=== PATIENT | male | born 1965 | race Caucasian/White ===

== ENCOUNTER 2019-11-23 14:36 | Inpatient (IN) | payer MEDICAID ==
[~2019-11-23] VITALS: Ht 185.4 cm; Wt 140.6 kg
--- NOTE | 2019-11-23 14:45 | NUR ---
BIB [facility] [address] [facility] TO ER- MULTIPLE BLE WOUNDS AND FAILURE TO THRIVE. TO ER BED 9, HOOKED TO MONITOR, CHANGED TO HOSP GOWN, PATIENT NOTED WITH COLOSTOMY BAG, SUPRAPUBIC CATHETER AND BETH CATHETER. WARM BLANKET PROVIDED, PATIENT AAO x 4, BREATHING EVEN AND UNLABORED. DR LOPEZ AT BEDSIDE FOR EVAL.
--- NOTE | 2019-11-23 15:07 | NUR ---
URINE SAMPLE COLLECTED FROM SUPRAPUBIC CATHETER. SENT SAMPLE TO LAB
[2019-11-23 15:12] LABS: BASOPHILS % (AUTO) 0.6 % (0.0-2.0); EOSINOPHILS % (AUTO) 3.1 % (0.0-6.0); HEMATOCRIT 37 % (39-51); HEMOGLOBIN 11.6 g/dL (13.5-17.5); LYMPHOCYTES # (AUTO) 1.6 /CMM (0.8-4.8); LYMPHOCYTES % (AUTO) 21.2 % (20.0-44.0); MEAN CORPUSCULAR HGB CONC 31 g/dl (31.0-36.0); MEAN CORPUSCULAR VOLUME 72 fL (80-96); MONOCYTES # (AUTO) 0.4 /CMM (0.1-1.30); MONOCYTES % (AUTO) 5.6 % (2.0-12.0); NEUTROPHILS # (AUTO) 5.2 /CMM (1.8-8.9); NEUTROPHILS % (AUTO) 69.5 % (43.0-81.0); PLATELET COUNT (AUTO) 251 /CMM (150-450); RED BLOOD CELL COUNT(AUTO) 5.16 MIL/uL (4.5-6.0); WHITE BLOOD COUNT (AUTO) 7.5 K/uL (4.3-11.0)
[2019-11-23 15:27] LABS: APPEARANCE,URINE Clear (CLEAR); BILIRUBIN,URINE Negative (NEGATIVE); BLOOD, URINE Trace-intact Ery/uL (NEGATIVE); COLOR,URINE Yellow (YELLOW); KETONES,URINE Negative (NEGATIVE); LEUKOCYTE ESTERASE ,URINE Small (NEGATIVE); NITRITE, URINE Positive (NEGATIVE); PROTEIN,URINE Trace mg/dl (NEGATIVE); UGLUCOSE Negative (NEGATIVE); UROBILINOGEN,URINE 0.2 EU/dL (0.2)
--- NOTE | 2019-11-23 15:33 | NUR ---
TEACHER [employer] EDUCATION AT BEDSIDE FOR XRAY
[2019-11-23 15:39] LABS: ALANINE AMINOTRANSFERASE 19 U/L (12-78); ALBUMIN 3.7 g/dL (3.4-5.0); ALKALINE PHOSPHATASE 86 U/L (46-116); ASPARTATE AMINOTRANSFERASE 13 U/L (15-37); BILIRUBIN,DIRECT 0.1 mg/dL (0.0-0.2); BILIRUBIN,TOTAL 0.3 mg/dL (0.2-1.0); CALCIUM, SERUM 8.9 mg/dL (8.5-10.1); CARBON DIOXIDE 26 mmol/L (21-32); CHLORIDE 101 mmol/L (98-107); CREATININE 0.6 mg/dL (0.6-1.3); GLUCOSE 149 mg/dL (74-106); SODIUM SERUM 136 mmol/L (136-145); TOTAL PROTEIN, SERUM 8.4 g/dL (6.4-8.2); UREA NITROGEN, BLOOD 11 mg/dL (7-18)
[2019-11-23] MEDS ORDERED: FAMO20TA8 PO (15:42)
[2019-11-23] MEDS ORDERED: NYST15PO4 TP (15:42)
[2019-11-23] MEDS ORDERED: SODI480S2 TD (15:42)
[2019-11-23] MEDS ORDERED: METF-441 PO (15:42)
[2019-11-23] MEDS ORDERED: MULT-1094 PO (15:42)
[2019-11-23] MEDS ORDERED: BACL10TA PO (15:42)
[2019-11-23] MEDS ORDERED: ASCO-352 PO (15:42)
[2019-11-23] MEDS ORDERED: ACET-2605 PO (15:42)
[2019-11-23] MEDS ORDERED: LEVE500T9 PO (15:42)
[2019-11-23] MEDS ORDERED: MAG30ORA PO (15:42)
[2019-11-23] MEDS ORDERED: BISA5TAB10 PO (15:42)
[2019-11-23] MEDS ORDERED: DULO60CA45 PO (15:42)
[2019-11-23] MEDS ORDERED: DOCU-141 PO (15:42)
[2019-11-23] MEDS ORDERED: SENN-261 PO (15:42)
[2019-11-23] MEDS ORDERED: CARV3.12 PO (15:42)
[2019-11-23] MEDS ORDERED: ACET-868 PO (15:42)
[2019-11-23] MEDS ORDERED: ALBU18HF2 IH (15:42)
[2019-11-23] MEDS ORDERED: SODI473S8 TD (15:42)
--- NOTE | 2019-11-23 15:50 | NUR ---
CALLED [facility] FOR ADMISSION, PAGED DR BANKS
[2019-11-23] MEDS ORDERED: VANCOMYCIN 1 GM in IV D5W 250 ML IV ONE (16:00)
[2019-11-23] MEDS ORDERED: CEFEPIME 1 GM in IV D5W 50 ML IV ONE (16:00)
--- NOTE | 2019-11-23 16:22 | NUR ---
CALLED [facility], PAGED DR BANKS FOR ADMISSION
--- NOTE | 2019-11-23 16:47 | NUR ---
REPORT GIVEN TO SADE HAND OF MS
[2019-11-23 16:57] LABS: BACTERIA,URINE Moderate /HPF (None Seen); MUCUS,URINE Few /LPF (None Seen); SQUAMOUS EPITHELIAL CELL,UR Few /HPF (None Seen); URINE AMORPHOUS URATE Few /HPF (None Seen)
--- NOTE | 2019-11-23 17:30 | NUR ---
SIGNALS COLLECTION TECHNICIAN ADMISSION NOTES Received patient from ED in no acute distress. Alert and oriented x4. Respiration is even and easy with no shortness of breath. No complain of pain or discomfort at this time. IV sit on right forearm with 18G intact and infusing well. On suprapubic and degroot catheter draining yellow to cloudy urine with output of 600cc. Call light left within reach for easy access. Head of bed kept elevated for comfort. Vital signs taken and within normal limits. Will continue to monitor.
[2019-11-23] MEDS ORDERED: Z GUARD REMEDY 2 OZ OINT TP PRN (18:30)
[2019-11-23] MEDS ORDERED: ONDANSETRON HCL/PF 4 MG/2 ML VIAL IVP PRN (18:30)
[2019-11-23] MEDS ORDERED: INSULIN REGULAR, HUMAN 100 UNIT/ML 3 ML VIAL SQ PRN (18:30)
[2019-11-23] MEDS ORDERED: DEXTROSE 50%-WATER 50 ML DISP.SYRIN IV PRN (18:30)
[2019-11-23] MEDS ORDERED: ACETAMINOPHEN 325 MG TABLET PO PRN (18:30)
[2019-11-23] MEDS ORDERED: MAGNESIUM HYDROXIDE 30 ML UDC PO PRN (18:30)
[2019-11-23] MEDS ORDERED: MAG HYDROX/AL HYDROX/SIMETH 30 ML UDC PO PRN ×2 (18:30)
[2019-11-23] MEDS ORDERED: FEE PK DOSING 1 MIN EA MC ONE (19:02)
--- NOTE | 2019-11-23 19:10 | NUR ---
RN OPENING NOTES: PATIENT IN BED, AWAKE, VERBALLY RESPONSIVE. NO SOB. NO C/O PAIN. SAFETY PRECAUTIONS IMPLEMENTED. BED LOCKED, ALARM ON, LOW POSITION. CALL LIGHT WITHIN REACH. WILL CONT. TO MONITOR.
--- NOTE | 2019-11-23 19:25 | NUR ---
MANAGER SQL CLOSING NOTES Remains alert / oriented x4. Respiration is even and easy with no shortness of breath. Kept safe and comfortable. Call light left within reach. All needs will be anticipated and provided to. Good nursing care rendered. Will endorse to next shift.
[2019-11-23] MEDS: ALBUTEROL FS 2.5 MG/3 ML VIAL.NEB NEB SCH (19:30)
[2019-11-23] MEDS: ENOXAPARIN SODIUM 40 MG/0.4 ML DISP.SYRIN SQ SCH (19:39)
[2019-11-23 20:00] VITALS: BP 138/75
[2019-11-23] MEDS ORDERED: VANCOMYCIN 500 MG in IV D5W 100 ML IV ONE (20:00)
--- NOTE | 2019-11-23 21:15 | NUR ---
RN NOTE: 2029: PATIENT HAS A SCHEDULED IV VANCO X 1 AT 1999; HOWEVER, IV SITE ON LEFT FOREARM G20 IS INFILTRATED. UNABLE TO ADMINISTER MEDICATION AT THIS TIME. REMOVED IV LINE. WILL INSERT A NEW IV LINE. AT 2114, CHARGE NURSE WAS ABLE TO INSERT A NEW IV LINE ON LEFT HAND G20. ADMINISTERED IV VANCO DOSE X 1 AT 2132. WILL CONT. TO MONITOR. AT 49, SPOKE WITH PHARMACIST CARLOS AND MADE AWARE THAT IV VANCO X 1 AT 1999 WAS ADMINISTERED AT 2132 DUE TO LEFT FOREARM G20 IV LINE WAS INFILTRATED AND WAS UNABLE TO SUCCESSFULLY INSERT A NEW IV LINE UNTIL AROUND 2114. PER PHARMACIST, HE WILL CHANGE THE TIME FOR NEXT DOSE SINCE IV VANCO IS Q8H ORDERED AND TROUGH LEVEL SHOULD BE CHANGED TONIGHT AT 2029.
[2019-11-23] MEDS: SENNOSIDES 8.6 MG TABLET PO SCH (21:47)
[2019-11-23] MEDS: ASCORBIC ACID 500 MG TABLET PO SCH (21:47)
[2019-11-23] MEDS: LEVETIRACETAM (250 MG) 250 MG TABLET PO SCH (21:47)
[2019-11-23] MEDS: CARVEDILOL 3.125 MG TABLET PO SCH (21:48)
[2019-11-23] MEDS: BLOOD SUGAR DIAGNOSTIC 1 EACH STRIP IN SCH (22:00)
--- NOTE | 2019-11-23 22:26 | NUR ---
RN NOTE: PATIENT REFUSED ACCUCHECK. OFFERED 3X, RISKS AND BENEFITS EXPLAINED. PATIENT IS AAOX4. WILL CONT. TO MONITOR.
[2019-11-24] MEDS: PIPERACILLIN /TAZOBACTAM 3.375 G in IV D5W 50 ML IV SCH ×4 (01:00→16:51)
[2019-11-24] MEDS ORDERED: VANCOMYCIN 1 GM in IV D5W 250 ML IV SCH (01:00)
[2019-11-24 04:00] VITALS: BP 114/66
--- NOTE | 2019-11-24 05:00 | NUR ---
RN NOTE: PATIENT REFUSED BED BATH AND WOUND CARE. OFFERED 3X, RISKS AND BENEFITS EXPLAINED, STILL REFUSED. PATIENT STATED, "I DON'T WANT TO BE TOUCHED." CHARGE NURSE VICENTE MADE AWARE. WILL ENDORSE TO AM RN. 0700: AM RN MADE AWARE.
[2019-11-24] MEDS: VANCOMYCIN 1 GM in IV D5W 250 ML IV SCH ×3 (05:48→23:16)
[2019-11-24] MEDS: DAKINS HALF STRENGTH (0.25%) 480 ML BOTTLE TOP SCH ×2 (07:37→16:45)
[2019-11-24] MEDS: NYSTATIN TOP POWDER 15 GM BOTTLE TP SCH ×2 (07:37→16:45)
--- NOTE | 2019-11-24 07:56 | NUR ---
RN CLOSING NOTES: NO ACUTE DISTRESS. PATIENT IN STABLE CONDITION. ENDORSED TO AM RN FOR CONTINUITY OF CARE.
--- NOTE | 2019-11-24 08:00 | NUR ---
AJIT RN OPENING NOTES RECEIVED PT IN ROOM. ALERT AND ORIENTED X4. PT VS WNL. PT IS ON RA SAT IN 99%. PT IS MED SURGE CATHY #20 IS FLUSHING WELL AND INTACT. PT HAS MANY WOUNDS WILL TREAT BASED ON WOUND CONSULT ORDERS. SAFETY MEASUREMENTS ARE IMPLEMENTED. CALL LIGHT WITHIN REACH. BED IS IN THE LOWEST POSITION AND BED LOCKED AND RAILS ARE X2. WILL CONTINUE TO MONITOR
[2019-11-24] MEDS ORDERED: BISACODYL (5 MG) 5 MG TABLET.DR PO SCH (09:00)
[2019-11-24] MEDS: ASCORBIC ACID 500 MG TABLET PO SCH ×2 (09:07→20:19)
[2019-11-24] MEDS: LEVETIRACETAM (250 MG) 250 MG TABLET PO SCH ×2 (09:07→20:18)
[2019-11-24] MEDS: DOCUSATE SODIUM 100 MG CAPSULE PO SCH ×2 (09:07→16:51)
[2019-11-24] MEDS: FAMOTIDINE (20 MG) 20 MG TABLET PO SCH ×2 (09:08→16:51)
[2019-11-24] MEDS: DULOXETINE HCL 30 MG CAPSULE.DR PO SCH (09:09)
[2019-11-24] MEDS: BACLOFEN (10 MG) 10 MG TABLET PO SCH ×3 (09:09→16:51)
[2019-11-24] MEDS: CARVEDILOL 3.125 MG TABLET PO SCH ×2 (09:10→23:19)
[2019-11-24] MEDS: BLOOD SUGAR DIAGNOSTIC 1 EACH STRIP IN SCH ×4 (09:11→22:00)
[2019-11-24] MEDS: METFORMIN 850 MG TABLET PO SCH ×2 (09:53→16:51)
[2019-11-24 12:00] VITALS: BP 105/54
[2019-11-24 13:33] LABS: CALCIUM, SERUM 8.6 mg/dL (8.5-10.1); CREATININE 0.5 mg/dL (0.6-1.3); MAGNESIUM 2.2 mg/dL (1.8-2.4); POTASSIUM 4.1 mmol/L (3.5-5.1)
[2019-11-24 13:44] LABS: THYROID STIMULATING HORMONE 0.967 uIU/mL (0.358-3.74)
[2019-11-24] MEDS: PROSOURCE / PROSTAT (PYXIS) 30 ML UDC GT SCH ×2 (14:01→16:44)
[2019-11-24 14:36] LABS: BASOPHILS # (AUTO) 0.1 /CMM (0.0-0.2); BASOPHILS % (AUTO) 0.9 % (0.0-2.0); EOSINOPHILS % (AUTO) 2.4 % (0.0-6.0); HEMATOCRIT 37 % (39-51); HEMOGLOBIN 11.3 g/dL (13.5-17.5); LYMPHOCYTES # (AUTO) 1.2 /CMM (0.8-4.8); LYMPHOCYTES % (AUTO) 11.1 % (20.0-44.0); MEAN CORPUSCULAR HGB CONC 31 g/dl (31.0-36.0); MEAN CORPUSCULAR VOLUME 73 fL (80-96); MONOCYTES # (AUTO) 0.6 /CMM (0.1-1.30); MONOCYTES % (AUTO) 5.6 % (2.0-12.0); NEUTROPHILS # (AUTO) 8.5 /CMM (1.8-8.9); RED BLOOD CELL COUNT(AUTO) 5.04 MIL/uL (4.5-6.0); WHITE BLOOD COUNT (AUTO) 10.7 K/uL (4.3-11.0)
--- NOTE | 2019-11-24 16:02 | NUR ---
3:30pm This SW spoke with PEACE Carlin to conduct a social service consult on this patient per Dr. Farah request. Per MD notes, patient came from a congregate living facility with multiple pressure wounds. Patient refused to speak with this SW. PEACE Carlin informed this SW that the patient looked drowsy and to try again in later this afternoon or tomorrow. This SW to follow up again tomorrow. Phlebotomy Tech to remain available for all needs regarding this patient.
[2019-11-24 16:28] LABS: PLATELET COUNT (AUTO) 209 /CMM (150-450)
[2019-11-24 17:29] LABS: BAND % (MANUAL) 2 % (0.0-5.0); EOSINOPHILS % (MANUAL) 2 % (0-4); LYMPHOCYTES % (MANUAL) 11 % (16-48); MONOCYTES % (MANUAL) 6 % (0-11.0); NEUTROPHILS % (MANUAL) 78 (42-76)
[2019-11-24 17:30] LABS: BASOPHILS % (MANUAL) 1 % (0.0-2.0)
--- NOTE | 2019-11-24 18:42 | NUR ---
AJIT RN CLOSING NOTES PT IS RESTING IN BED. ALERT AND ORIENTED X4. PT IS ON RA SAT IN HIS HIGH 90'S. PT MED SURGE .LEFT HAND #20 IS INTACT AND WELL FLUSHED WITH RUNNING NS 75 ML/HR. PT HAS SUPRAPUBIC BETH. PT'S NEEDS WERE MET. ALL WOUNDS ARE CLEAN AND DRY , ABD PADS AND MEPILEX ARE APPLIED. ALL MEDS ARE TAKEN . PT IS ON [facility] DIET. SAFETY MEASUREMENTS ARE IMPLEMENTED . CALL LIGHT WITHIN THE REACH. BED IS IN THE LOWEST POSITION AND RAILS ARE UP X2. WILL ENDORSE TO NIGHTSHIFT NURSE FOR STEPHANIE.
[2019-11-24 20:00] VITALS: BP 163/103
[2019-11-24] MEDS: ZOLPIDEM TARTRATE 5 MG TABLET PO PRN ×2 (20:16→22:56)
[2019-11-24] MEDS: SENNOSIDES 8.6 MG TABLET PO SCH (20:19)
[2019-11-24] MEDS: ENOXAPARIN SODIUM 40 MG/0.4 ML DISP.SYRIN SQ SCH (20:21)
[2019-11-25] MEDS: PIPERACILLIN /TAZOBACTAM 3.375 G in IV D5W 50 ML IV SCH ×5 (00:28→23:48)
--- NOTE | 2019-11-25 03:00 | NUR ---
CLINIC CLERK NOTE PT IS REFUSING WOUND CARE AT THIS TIME WILL TRY AGAIN AT A LATER TIME.
[2019-11-25 04:00] VITALS: BP 106/72
[2019-11-25] MEDS: VANCOMYCIN 1 GM in IV D5W 250 ML IV SCH ×3 (04:57→23:47)
--- NOTE | 2019-11-25 05:07 | NUR ---
RN NOTES PT IS REFUSING TO HAVE WOUND CARE DONE AT THIS TIME AND STATES HE WOULD PREFER IT TO BE DONE DURING THE DAY. EXPLAINED THE RISKS OF PROLONGING CARE BUT HE STILL REFUSES. WILL ENDORSE TO AM RN.
[2019-11-25 06:47] LABS: CALCIUM, SERUM 8.9 mg/dL (8.5-10.1); CREATININE 0.6 mg/dL (0.6-1.3); POTASSIUM 3.5 mmol/L (3.5-5.1)
--- NOTE | 2019-11-25 07:30 | NUR ---
RN NOTES RECEIVED ASLEEP, AWAKEN BY VERBAL STIMULI. A/OX4. NO SOB NOTED ON ROOM AIR. DENIES ANY PAIN AT THE MOMENT. IV ACCESS ON THE L WRIST 20, IN PLACE. INTACT. FLUSHING GOOD. SITE NO TENDERNESS, NO INDICATION OF INFECTION OR INFILTRATION. SUPRAPUBIC CATHETER IN PLACE, NOTED TO BE NOT FUNCTIONING PATIENT IS SOAKED IN URINE, TUBING IS STAINED- WILL CHANGE LATER WITH MD'S PERMISSION. ENCOURAGE TO VERBALIZE FEELINGS AND CONCERNS. TO CALL FOR HELP/ ASSISTANCE WHEN NEEDED. SAFETY MEASURES OBSERVED AND MAINTAINED. CALL LIGHT PLACED WITHIN REACH. REITERATED ISOLATION PRECAUTION. WILL CONTINUE TO MONITOR PATIENT ACCORDINGLY
--- NOTE | 2019-11-25 07:39 | NUR ---
WOUND CARE CONSULT: PT REFUSED SKIN ASSESSMENT AT THIS TIME. REVIEWED CHART, NURSING DOCUMENTATION AND PHOTOS WHICH INDICATE SACRAL WOUND WITH NECROTIC TISSUE, BILATERAL LOWER EXTREMITY WOUNDS AND RT THIGH WOUND, ALL PRESENT ON ADMISSION. SURGICAL AND DPM CONSULTS WERE REQUESTED WITH DR DARREN UMANZOR AND DR ERICKSON. RECOMMENDATIONS MADE FOR WOUND CARE AND SKIN PROTECTION. DISCUSSED WITH NURSING STAFF. FIRST STEP LOW AIRLOSS MATTRESS IS ON ORDER. DEFER TO DPM FOR FOOT WOUNDS. MD IN AGREEMENT WITH PLAN OF CARE.
[2019-11-25] MEDS: ASCORBIC ACID 500 MG TABLET PO SCH ×2 (09:29→20:35)
[2019-11-25] MEDS: BLOOD SUGAR DIAGNOSTIC 1 EACH STRIP IN SCH ×4 (09:29→22:00)
[2019-11-25] MEDS: FAMOTIDINE (20 MG) 20 MG TABLET PO SCH ×2 (09:29→16:18)
[2019-11-25] MEDS: METFORMIN 850 MG TABLET PO SCH ×2 (09:29→16:18)
[2019-11-25] MEDS: BACLOFEN (10 MG) 10 MG TABLET PO SCH ×3 (09:29→16:18)
[2019-11-25] MEDS: LEVETIRACETAM (250 MG) 250 MG TABLET PO SCH ×2 (09:29→20:35)
[2019-11-25] MEDS: DOCUSATE SODIUM 100 MG CAPSULE PO SCH ×2 (09:29→16:18)
[2019-11-25] MEDS: DAKINS HALF STRENGTH (0.25%) 480 ML BOTTLE TOP SCH ×2 (09:30→16:18)
[2019-11-25] MEDS: CARVEDILOL 3.125 MG TABLET PO SCH ×2 (09:30→20:41)
[2019-11-25] MEDS: DULOXETINE HCL 30 MG CAPSULE.DR PO SCH (09:30)
[2019-11-25] MEDS: NYSTATIN TOP POWDER 15 GM BOTTLE TP SCH ×2 (09:31→16:19)
[2019-11-25] MEDS: PROSOURCE / PROSTAT (PYXIS) 30 ML UDC GT SCH ×3 (09:34→16:18)
--- NOTE | 2019-11-25 11:15 | NUR ---
RECEIVED PATIENT IN BED. NO ACUTE DISTRESS NOTED. PATIENT ALERT & ORIENTED X4. PATIENT ON ROOM AIR, SATURATING WELL AT 96%. PATIENT L HAND IV ACCESS INTACT, PATENT, FLUSHED WELL. PATIENT BETH CATHETER AND SUPRAPUBIC CATHETER IN PLACE, INTACT, DRAINING TO GRAVITY. PATIENT SAFETY MEASURES MAINTAINED. CALL LIGHT WITHIN REACH. WILL CONTINUE TO MONITOR.
--- NOTE | 2019-11-25 11:15 | NUR ---
RN NOTES HANDS OFF. ENDORSED TO PEACE MOLINA FOR CONTINUITY OF CARE
--- NOTE | 2019-11-25 11:38 | NUR ---
WOUND CARE CONSULT: PT SEEN FOR SKIN ASSESSMENT WHICH WAS VERY DIFFICULT DUE TO PT UNCOOPERATIVE AT TIMES. PT WAS LAUGHING AND COOPERATIVE AT FIRST, THEN BEGAN SCREAMING AT STAFF. URINE NOTED FROM URINARY MEATUS ALTHOUGH THERE WAS SUPRAPUBIC CATH IN PLACE. RN TO DISCUSS WITH MD. FOOT DRESSINGS WERE KEPT DRY AND INTACT AT THIS TIME. DR ERICKSON TO SEE LOWER EXTREMITIES. DEFER TO DPM. PT NOTED TO HAVE BILATERAL BUTTOCK STAGE 4 ULCERS WITH OPEN AREA TO RT POSTERIOR THIGH, PRESENT ON ADMISSION. RECOMMENDATIONS MADE FOR SKIN PROTECTION AND WOUND CARE. DISCUSSED WITH NURSING STAFF. FIRST STEP LOW AIRLOSS MATTRESS ON ORDER. CALL IN TO DR DARREN UMANZOR FOR SURGICAL CONSULT. MD IN AGREEMENT WITH PLAN OF CARE. Addendum: 11/25/19 at 1142 by LAKISHA RINALDI WNDNU Amended: Links added.
[2019-11-25 12:00] VITALS: BP 120/62
[2019-11-25] MEDS: DAKINS QUARTER STRENGTH (0.125%) 480 ML BOTTLE TOP SCH (16:19)
--- NOTE | 2019-11-25 18:30 | NUR ---
PATIENT IN BED. NO ACUTE DISTRESS NOTED. PATIENT ALERT & ORIENTED X4. PATIENT ON ROOM AIR, SATURATING WELL AT 96%. PATIENT L HAND IV ACCESS INTACT, PATENT, FLUSHED WELL. PATIENT BETH CATHETER AND SUPRAPUBIC CATHETER IN PLACE, INTACT, DRAINING TO GRAVITY. PATIENT COLOSTOMY INTACT. PATIENT SAFETY MEASURES MAINTAINED. CALL LIGHT WITHIN REACH. WILL ENDORSE PLAN OF CARE TO ONCOMING NURSE FOR CONTINUITY OF CARE
[2019-11-25] MEDS: ALBUTEROL FS 2.5 MG/3 ML VIAL.NEB NEB SCH (19:30)
[2019-11-25 20:00] VITALS: BP 119/66
[2019-11-25] MEDS: ZOLPIDEM TARTRATE 5 MG TABLET PO PRN (20:36)
[2019-11-25] MEDS: ENOXAPARIN SODIUM 40 MG/0.4 ML DISP.SYRIN SQ SCH (20:43)
[2019-11-25] MEDS: SENNOSIDES 8.6 MG TABLET PO SCH (20:44)
[2019-11-25] MEDS: *INSULIN REGULAR(HUMULIN R)HUM 100 UNIT/ML VIAL SQ PRN (23:46)
[2019-11-26 04:00] VITALS: BP 114/63
[2019-11-26] MEDS: VANCOMYCIN 1 GM in IV D5W 250 ML IV SCH ×3 (04:33→21:39)
[2019-11-26 06:24] LABS: CALCIUM, SERUM 9.1 mg/dL (8.5-10.1); CREATININE 0.5 mg/dL (0.6-1.3); POTASSIUM 4.2 mmol/L (3.5-5.1)
[2019-11-26] MEDS: PIPERACILLIN /TAZOBACTAM 3.375 G in IV D5W 50 ML IV SCH ×4 (06:40→23:35)
--- NOTE | 2019-11-26 07:23 | NUR ---
RN notes Received patient comfortably lying in bed resting while watching TV. On room air, tolerating well. Garcia and suprapubic catheter in place, draining clear yellow with no foul odor urine. Patient refused blood glucose check. Patient said "My blood sugar is not that high so accu check for frequency ACHS is too much." Kept clean and dry. Endorsed to next shift for continuity of care.
[2019-11-26] MEDS: ALBUTEROL FS 2.5 MG/3 ML VIAL.NEB NEB SCH ×2 (07:30→19:30)
[2019-11-26 08:00] VITALS: BP 133/76
[2019-11-26] MEDS: BACLOFEN (10 MG) 10 MG TABLET PO SCH ×3 (08:17→17:00)
[2019-11-26] MEDS: ASCORBIC ACID 500 MG TABLET PO SCH ×2 (08:17→21:12)
[2019-11-26] MEDS: FAMOTIDINE (20 MG) 20 MG TABLET PO SCH ×2 (08:17→17:00)
[2019-11-26] MEDS: LEVETIRACETAM (250 MG) 250 MG TABLET PO SCH ×2 (08:17→21:12)
[2019-11-26] MEDS: DOCUSATE SODIUM 100 MG CAPSULE PO SCH ×3 (08:17→17:00)
[2019-11-26] MEDS: DULOXETINE HCL 30 MG CAPSULE.DR PO SCH (08:18)
[2019-11-26] MEDS: METFORMIN 850 MG TABLET PO SCH ×2 (08:18→17:00)
[2019-11-26] MEDS: CARVEDILOL 3.125 MG TABLET PO SCH ×2 (08:29→21:13)
[2019-11-26] MEDS: PROSOURCE / PROSTAT (PYXIS) 30 ML UDC GT SCH ×3 (08:30→17:00)
[2019-11-26] MEDS: BLOOD SUGAR DIAGNOSTIC 1 EACH STRIP IN SCH ×4 (08:30→22:18)
--- NOTE | 2019-11-26 08:45 | NUR ---
RN NOTES REPORT GIVEN TO GERALDINE HAND FOR CONTINUITY OF CARE
[2019-11-26] MEDS: DAKINS HALF STRENGTH (0.25%) 480 ML BOTTLE TOP SCH ×2 (09:00→17:00)
--- NOTE | 2019-11-26 09:00 | NUR ---
RECEIVED REPORT BY NICK.
[2019-11-26] MEDS: DAKINS QUARTER STRENGTH (0.125%) 480 ML BOTTLE TOP SCH ×2 (09:42→17:00)
[2019-11-26] MEDS: NYSTATIN TOP POWDER 15 GM BOTTLE TP SCH ×2 (09:43→17:00)
[2019-11-26] MEDS: MUPIROCIN OINT 2% 22 GM TUBE NS SCH ×2 (11:07→22:17)
--- NOTE | 2019-11-26 11:10 | NUR ---
SPOKE WITH PHARMACY REGARDING DAKINS HALF STRENGTH 0.25, ACCORDING PHARMACY THERE'S NO ORDER HALF STRENGTH DAKINS, WILL CLARIFY WITH MD.
--- NOTE | 2019-11-26 18:45 | NUR ---
RN Closing note Patient in bed resting comfortably, does no appears pain or distress. Respiratory even and unlabored on room air. Skin is warm to touch, keep clean/dry, intact new midline site, running IV ATB, no s/s of adverse reaction from ATB. Kept bed in locked with elevated HOB for ensure airway and aspiration precaution. Call light within reach, will endorse night warehouse selector. Patient refused air mattress placer on bed, blood sugar check, and wound dressing change.
[2019-11-26] MEDS: SENNOSIDES 8.6 MG TABLET PO SCH (21:12)
[2019-11-26] MEDS: ENOXAPARIN SODIUM 40 MG/0.4 ML DISP.SYRIN SQ SCH (21:14)
[2019-11-26] MEDS: *INSULIN REGULAR(HUMULIN R)HUM 100 UNIT/ML VIAL SQ PRN (23:14)
[2019-11-27] MEDS: VANCOMYCIN 1 GM in IV D5W 250 ML IV SCH ×3 (06:07→20:49)
[2019-11-27] MEDS: PIPERACILLIN /TAZOBACTAM 3.375 G in IV D5W 50 ML IV SCH ×6 (06:07→23:56)
[2019-11-27 06:24] LABS: BASOPHILS # (AUTO) 0.1 /CMM (0.0-0.2); BASOPHILS % (AUTO) 0.9 % (0.0-2.0); EOSINOPHILS % (AUTO) 4.4 % (0.0-6.0); HEMATOCRIT 36 % (39-51); LYMPHOCYTES # (AUTO) 2.2 /CMM (0.8-4.8); LYMPHOCYTES % (AUTO) 22.2 % (20.0-44.0); MEAN CORPUSCULAR HGB CONC 31 g/dl (31.0-36.0); MEAN CORPUSCULAR VOLUME 72 fL (80-96); MONOCYTES # (AUTO) 0.8 /CMM (0.1-1.30); MONOCYTES % (AUTO) 7.7 % (2.0-12.0); NEUTROPHILS # (AUTO) 6.4 /CMM (1.8-8.9); NEUTROPHILS % (AUTO) 64.8 % (43.0-81.0); PLATELET COUNT (AUTO) 224 /CMM (150-450); RED BLOOD CELL COUNT(AUTO) 4.99 MIL/uL (4.5-6.0); WHITE BLOOD COUNT (AUTO) 9.9 K/uL (4.3-11.0)
[2019-11-27 06:28] LABS: CALCIUM, SERUM 8.9 mg/dL (8.5-10.1); CREATININE 0.4 mg/dL (0.6-1.3); POTASSIUM 3.7 mmol/L (3.5-5.1)
[2019-11-27] MEDS: ALBUTEROL FS 2.5 MG/3 ML VIAL.NEB NEB SCH ×2 (07:19→19:30)
--- NOTE | 2019-11-27 07:30 | NUR ---
RN OPENING NOTES RECEIVED PATIENT IN BED RESTING COMFORTABLE A/O X 4. NO S/S OF RESPIRATORY DISTRESS. PATIENT IS ROOM AIR, RESPIRATORY ARE EVEN AND UNLABORED. NOTED MIDLINE SITE, RUNNING ATB. SAFETY MEASURES IN PLACE , BED IS LOCKED , IN LOWEST POSITION AND HOB ELEVATED . CALL LIGHT IS WITHIN EASY REACH, WILL CONTINUE TO MONITOR.
[2019-11-27] MEDS: BLOOD SUGAR DIAGNOSTIC 1 EACH STRIP IN SCH ×4 (07:47→22:00)
[2019-11-27] MEDS: LEVETIRACETAM (250 MG) 250 MG TABLET PO SCH ×2 (08:54→20:55)
[2019-11-27] MEDS: CARVEDILOL 3.125 MG TABLET PO SCH ×2 (08:55→20:46)
[2019-11-27] MEDS: DULOXETINE HCL 30 MG CAPSULE.DR PO SCH (08:55)
[2019-11-27] MEDS: DOCUSATE SODIUM 100 MG CAPSULE PO SCH ×2 (08:55→17:11)
[2019-11-27] MEDS: FAMOTIDINE (20 MG) 20 MG TABLET PO SCH ×2 (08:56→17:11)
[2019-11-27] MEDS: BACLOFEN (10 MG) 10 MG TABLET PO SCH ×3 (08:56→17:12)
[2019-11-27] MEDS: ASCORBIC ACID 500 MG TABLET PO SCH ×2 (08:56→20:45)
[2019-11-27] MEDS: MUPIROCIN OINT 2% 22 GM TUBE NS SCH ×2 (08:57→20:44)
[2019-11-27] MEDS: DAKINS HALF STRENGTH (0.25%) 480 ML BOTTLE TOP SCH ×2 (08:57→17:13)
[2019-11-27] MEDS: DAKINS QUARTER STRENGTH (0.125%) 480 ML BOTTLE TOP SCH ×2 (08:58→17:13)
[2019-11-27] MEDS: PROSOURCE / PROSTAT (PYXIS) 30 ML UDC GT SCH ×3 (09:00→17:12)
[2019-11-27] MEDS: NYSTATIN TOP POWDER 15 GM BOTTLE TP SCH ×2 (09:03→17:14)
[2019-11-27] MEDS: METFORMIN 850 MG TABLET PO SCH ×2 (09:04→17:11)
--- NOTE | 2019-11-27 12:23 | NUR ---
RN NOTES PER PATIENT DOES NOT TAKE INSULIN WHEN BLOOD SUGAR IS AT 137. PATIENT REFUSED 2 UNITS OF INSULIN.
--- NOTE | 2019-11-27 12:35 | NUR ---
CONSTRUCTION SITE CROSSING GUARD HERE FOR DEVAN THROUGH LEVELS, PATIENT REFUSED , TO COME BACK WHEN HE IS DONE EATING.
--- NOTE | 2019-11-27 13:10 | NUR ---
RN NOTES AUDIO/VISUAL MANAGER WAS HERE , UN ABLE YO DRAW BLOOD. WILL SEND ANOTHER TECH TO TRY. VANCO IV ON HOLD UNTIL THROUGH LEVELS ARE RESULTED.
--- NOTE | 2019-11-27 18:07 | NUR ---
VANCO THROUGH LEVELS HAVE BEEN RESULTED.TOO CLOSE TO NEXT DOSE. WILL CONTINUE TO HOLD THE 1330 UNTIL NEXT DOSE AT 2100.
--- NOTE | 2019-11-27 18:28 | NUR ---
RN CLOSING NOTES WILL ENDORSE PATIENT TO PM NURSE FOR STEPHANIE. PATIENT IS IN BED AWAKE , RESTING COMFORTABLE A/O X 4. NO S/S OF RESPIRATORY DISTRESS. PATIENT IS ROOM AIR, RESPIRATORY ARE EVEN AND UNLABORED. 02 SAT IS 99-100%. PATIENT HAS MIDLINE IV SITE AND LH # 20. PATIENT HAS BETH CATH AND A SUPRA PUBIC CATH DRAINING YELLOW URINE TO GRAVITY. PATIENT HAS A COLOSTOMY INTACT. PATIENT IS NPO AFTER MIDNIGHT. SAFETY MEASURES IN PLACE , BED IS LOCKED , AND IN LOWEST POSITION AND HOB ELEVATED . CALL LIGHT IS WITHIN EASY REACH, WILL CONTINUE TO MONITOR.
--- NOTE | 2019-11-27 19:40 | NUR ---
RN OPENING NOTE RECEIVED PATIENT IN BED RESTING ALERT ORIENTED X4 VERBALLY RESPONSIVE FULL CODE,NO SOB NO ACUTE DISTRESS NOTED,ON MED SURG MONITORING,ON ROOM AIR 100% IV SITE IS RIGHT UPPER ARM MID LINE INTACT PATENT,PATIENT HAS COLOSTOMY BAG,AND IS ON BETH CATHETER, SUPRAPUBIC AND INDWELLING URINE DRAINING YELLOW AND CLEAR,NPO AFTER MID NIGHT FOR BILATERAL FOOT DEBRIDEMENT,CALL LIGHT WITHIN REACH, SAFETY MEASURE IN PLACE, CONTINUE TO MONITOR.
--- NOTE | 2019-11-27 20:25 | NUR ---
RT pt refused tx. notified lexy soto
[2019-11-27] MEDS: ENOXAPARIN SODIUM 40 MG/0.4 ML DISP.SYRIN SQ SCH (20:57)
--- NOTE | 2019-11-27 20:58 | NUR ---
RN NOTE LOVENOX 40MG/0.4ML NOT ADMINISTERED PATIENT HAS PROCEDURE TOMORROW BILATERAL FOOT DEBRIDEMENT.
[2019-11-27] MEDS: SENNOSIDES 8.6 MG TABLET PO SCH (21:01)
--- NOTE | 2019-11-27 22:00 | NUR ---
RN NOTE PATIENT REFUSED TO CHECK BLOOD SUGAR AFTER EXPLAINED THREE TIMES,HE REFUSED CONTINUE TO MONITOR.
--- NOTE | 2019-11-27 22:15 | NUR ---
RN NOTE NOTICED PATIENT MIDLINE INFILTRATED SWELLING,ZOSYN NOT ADMINISTERED BECAUSE PATIENET DOESN'T HAVE IV ACCESS LINE HE REFUSED TO HAVE IV LINE CALLED ICU CHARGE NURSE NICE HE CAME PATIENT REFUSED TO HAVE IV LINE HE REQUESTED FOR MIDLINE,CALLED DR CRUZ SHE SAID OK TO HAVE MIDLINE AND WE ARE NOT ABLE TO HAVE MIDLINE TONIGHT AND PATIENT WILL MISS TWO IV ATB. DR CRUZ SAID IT IS OK.
--- NOTE | 2019-11-28 01:00 | NUR ---
TELE1 RN NOTE ICU NURSE FARZANA CAME TO REINSERT THE NEW IV LINE BUT PT REFUSED IT. PT WANTS MID LINE. NURSING ENTRANCE GUARD INFORMED, PER ARMAAN NO ONE IS AVAILABLE TILL MORNING. INFORMED HER PT HAS AM SX PROCEDURE. DR CRUZ INFORMED TOO THAT PT ALSO MISSED IV ATB DOSES DUE TO NO IV ACCESS. STATES 'WAIT TILL AM".
--- NOTE | 2019-11-28 04:00 | NUR ---
RN NOTE PT REFUSED 0400 O CLOCK VITALS.
[2019-11-28] MEDS: VANCOMYCIN 1 GM in IV D5W 250 ML IV SCH (05:30)
--- NOTE | 2019-11-28 05:49 | NUR ---
RN NOTE IV MED IS NOT ADMINISTERED BECAUSE PT DOES NOT HAVE IV LINE, MD IS AWARE.
[2019-11-28] MEDS: PIPERACILLIN /TAZOBACTAM 3.375 G in IV D5W 50 ML IV SCH ×4 (06:00→23:52)
--- NOTE | 2019-11-28 06:04 | NUR ---
RN NOTE IV MED IS NOT ADMINISTERED BECAUSE PT DOES NOT HAVE IV LINE, MD IS AWARE.
[2019-11-28] MEDS ORDERED: FAMOTIDINE/PF INJ 20 MG/2 ML VIAL IV ONE (07:02)
[2019-11-28] MEDS ORDERED: FENTANYL PF 250MCG/5ML AMPUL ONE (07:02)
[2019-11-28] MEDS ORDERED: MIDAZOLAM HCL 2 MG/2ML VIAL ONE (07:02)
[2019-11-28] MEDS ORDERED: ANESTHESIA TRAY IN PYXIS 1 EA TRAY MC ONE (07:06)
[2019-11-28] MEDS: ALBUTEROL FS 2.5 MG/3 ML VIAL.NEB NEB SCH ×3 (07:11→19:49)
--- NOTE | 2019-11-28 07:20 | NUR ---
RN CLOSING NOTE PT REMAINED STABLE. REPORT GIVEN TO INCOMING SHIFT FOR STEPHANIE.
--- NOTE | 2019-11-28 07:21 | NUR ---
RN NOTES \ RECEIVED REPORT FROM LEONEL HAND FOR STEPHANIE. PT IS CURRENTLY IN OR FOR SCHEDULED DEBRIDMENT OF WOUND. WILL BE AWAITING HIS ARRIVAL
[2019-11-28] MEDS: BLOOD SUGAR DIAGNOSTIC 1 EACH STRIP IN SCH ×4 (07:30→22:00)
--- NOTE | 2019-11-28 07:57 | NUR ---
RN NOTES UNABLE TO CHECK AM BLOOD GLUCOSE BECAUSE PT IS CURRENTLY IN OR
[2019-11-28] MEDS ORDERED: VANCOMYCIN 1 GM VIAL ONE (07:59)
[2019-11-28] MEDS ORDERED: BACITRACIN 50000 UNITS/VIAL ONE (08:00)
[2019-11-28] MEDS: METFORMIN 850 MG TABLET PO SCH ×2 (09:00→16:24)
[2019-11-28] MEDS: DAKINS HALF STRENGTH (0.25%) 480 ML BOTTLE TOP SCH ×2 (09:00→16:24)
[2019-11-28] MEDS: NYSTATIN TOP POWDER 15 GM BOTTLE TP SCH ×2 (09:00→16:22)
[2019-11-28] MEDS: CARVEDILOL 3.125 MG TABLET PO SCH ×2 (09:00→21:00)
[2019-11-28] MEDS: LEVETIRACETAM (250 MG) 250 MG TABLET PO SCH ×2 (09:00→21:35)
[2019-11-28] MEDS: MUPIROCIN OINT 2% 22 GM TUBE NS SCH ×2 (09:00→21:00)
[2019-11-28] MEDS: FAMOTIDINE (20 MG) 20 MG TABLET PO SCH ×2 (09:00→16:24)
[2019-11-28] MEDS: DOCUSATE SODIUM 100 MG CAPSULE PO SCH ×2 (09:00→16:24)
[2019-11-28] MEDS: PROSOURCE / PROSTAT (PYXIS) 30 ML UDC GT SCH ×3 (09:00→16:22)
[2019-11-28] MEDS: ASCORBIC ACID 500 MG TABLET PO SCH ×2 (09:00→21:35)
[2019-11-28] MEDS: DULOXETINE HCL 30 MG CAPSULE.DR PO SCH (09:00)
[2019-11-28] MEDS: BACLOFEN (10 MG) 10 MG TABLET PO SCH ×3 (09:00→16:24)
[2019-11-28] MEDS ORDERED: VANCOMYCIN 1 GM in IV D5W 250 ML IV SCH (10:00)
[2019-11-28] MEDS: DAKINS QUARTER STRENGTH (0.125%) 480 ML BOTTLE TOP SCH ×2 (10:06→16:22)
--- NOTE | 2019-11-28 10:08 | NUR ---
RN NOTES PATIENT HAS RETURNED FROM THE OR IN STABLE CONDITION, VITAL SIGNS BP: 139/67 HR 89 O2 SAT 96%. POST-OP ORDERS: RESUME PREOP ORDERS, ELEVATE EXTREMITIES, DAILY DRESSING CHANGES.
[2019-11-28 12:00] VITALS: BP 133/80
[2019-11-28] MEDS: *INSULIN REGULAR(HUMULIN R)HUM 100 UNIT/ML VIAL SQ PRN ×2 (12:34→22:04)
--- NOTE | 2019-11-28 14:36 | NUR ---
RN NOTES PT IS REFUSING BMP LAB DRAW, EXPLAINED REASON FOR TEST, VERBALIZED UNDERSTANDING. WILL CONTINUE TO MONITOR
[2019-11-28 16:00] VITALS: BP 128/76
--- NOTE | 2019-11-28 16:51 | NUR ---
RN NOTES PT IS REFUSING BED BATH AND DRESSING CHANGES ON SACRAL WOUNDS. EXPLAINED TO THE PT THE BENEFITS OF DRESSING CHANGE TO PREVENT INFECTION, PT VERBALIZED UNDERSTANDING AND STILL REFUSED.
[2019-11-28] MEDS: VANCOMYCIN 1.25 GM in IV D5W 250 ML IV SCH (18:12)
--- NOTE | 2019-11-28 19:25 | NUR ---
RN CLOSING NOTES TRANSFERRED PT TO ROOM 322-1, WILL GIVE HAND OFF REPORT. NO ACUTE CHANGES OCCURRED THROUGHOUT THE SHIFT. DEBRIDEMENT PROCEDURE WENT WELL, NO BLEEDING. PT NEEDS HAVE BEEN MET.
[2019-11-28 20:00] VITALS: BP 109/61
--- NOTE | 2019-11-28 20:00 | NUR ---
MS RN OPENING NOTE: Patient in bed, awake and oriented x 4. Patient able to make needs known. Patient S/P bilateral feet debridement. Dressing is dry and intact on both feet. Noted suprapubic, draining clear yellow output. Noted Garcia catheter, draining clear yellow output. Patient has a colostomy on the left abdomen with brown output. Noted left hand #18g IV access. Attempted to flush but patient stated "ouch, it hurts like hell." Was told by patient to stop. Educated the patient the importance of maintaining IV access patentcy. Patient still refused. Will try again. Safety precaution is in place, bed in the lowest level, bed is locked, alarm is on, side rails x2 are up, and call light is within reach. Will continue to monitor.
[2019-11-28] MEDS: ENOXAPARIN SODIUM 40 MG/0.4 ML DISP.SYRIN SQ SCH (21:00)
[2019-11-28] MEDS: SENNOSIDES 8.6 MG TABLET PO SCH (21:35)
--- NOTE | 2019-11-28 21:39 | NUR ---
MS RN NOTE: Patient refused Bactroban ointment. Educated patient the importance of the medication, its pros, and cons. Patient still refused despite the teaching.
--- NOTE | 2019-11-28 21:41 | NUR ---
MS RN NOTE: Patient BP 109/61. Held Coreg to prevent hypotensive episode. Will continue to monitor.
--- NOTE | 2019-11-28 21:42 | NUR ---
MS RN NOTE: Patient status post bilateral feet debridement and low H&H. Hold Lovenox to prevent bleeding episode.
--- NOTE | 2019-11-28 22:05 | NUR ---
MS RN NOTE: Patient refused accu check. Educated patient on the importance of checking blood sugar, its pros, and cons. Patient still refused despite teaching.
--- NOTE | 2019-11-28 22:06 | NUR ---
MS RN NOTE: Non-administered insulin sliding scale due to patient refusing glucose check.
[2019-11-28 22:53] LABS: CALCIUM, SERUM 8.2 mg/dL (8.5-10.1); CREATININE 0.6 mg/dL (0.6-1.3); POTASSIUM 4.1 mmol/L (3.5-5.1)
--- NOTE | 2019-11-29 00:21 | NUR ---
MS RN NOTE: Patient allowed me to check his glucose level. Accucheck resulted in glucose 126.
[2019-11-29] MEDS: VANCOMYCIN 1.25 GM in IV D5W 250 ML IV SCH ×3 (02:49→18:10)
[2019-11-29] MEDS: HYDROCODONE/APAP 5/325MG TABLET PO PRN ×2 (04:36→13:52)
--- NOTE | 2019-11-29 05:25 | NUR ---
MS RN NOTE: Patient IV access on left hand is infiltrated. Pulse present, capillary refill less than 3 seconds. Swelling present. Elevated hand and applied cold pack. Patient refuses IV access insertion at this time.
--- NOTE | 2019-11-29 05:36 | NUR ---
MS RN NOTE: Reassess pain. Patient rates pain a 5 on a 0-10 scale and describes pain as throbbing. Will continue to monitor.
--- NOTE | 2019-11-29 06:00 | NUR ---
MS RN NOTE: Patient agreed to IV access reinsertion. ICU nurse, Agustín, inserted 22g IV access on patients right hand. Will continue to monitor.
[2019-11-29] MEDS: PIPERACILLIN /TAZOBACTAM 3.375 G in IV D5W 50 ML IV SCH ×3 (06:29→18:09)
--- NOTE | 2019-11-29 06:47 | NUR ---
MS RN NOTE: Patient refused Glucose check. Educated patient on the importance of glucose check, the pros, and the cons. Despite the teaching, patient still refused.
[2019-11-29] MEDS: BLOOD SUGAR DIAGNOSTIC 1 EACH STRIP IN SCH ×3 (06:48→17:30)
--- NOTE | 2019-11-29 06:48 | NUR ---
MS RN NOTE: Non-administered Insulin due to patient refusing glucose check despite education.
--- NOTE | 2019-11-29 06:51 | NUR ---
MS RN CLOSING NOTE: Patient in bed watching TV. Patient is in no signs of respiratory distress or SOB. Safety precaution is in place, bed is in the lowest level, alarm is on, bed is locked, side rails x2 are up and call light is within reach. Will endorse to next shift.
--- NOTE | 2019-11-29 07:10 | NUR ---
ms rn received on bed, awake,alert,oriented x 4,not in any form of distress,respirations even and unlabored,n o sob noted, lungs are diminished,abdomen soft,positive bowel sounds,denies pain at this time. patient is very non compliant, refusing all the procedures required. just refused lab draw for today,all needs attended.
[2019-11-29] MEDS: ALBUTEROL FS 2.5 MG/3 ML VIAL.NEB NEB SCH ×2 (07:30→19:30)
[2019-11-29 08:00] VITALS: BP 114/53
[2019-11-29] MEDS: CARVEDILOL 3.125 MG TABLET PO SCH (09:00)
[2019-11-29] MEDS: NYSTATIN TOP POWDER 15 GM BOTTLE TP SCH ×2 (09:00→18:13)
[2019-11-29] MEDS: DAKINS HALF STRENGTH (0.25%) 480 ML BOTTLE TOP SCH ×2 (09:00→17:00)
[2019-11-29] MEDS: DAKINS QUARTER STRENGTH (0.125%) 480 ML BOTTLE TOP SCH ×2 (09:00→18:13)
[2019-11-29] MEDS: MUPIROCIN OINT 2% 22 GM TUBE NS SCH (09:00)
--- NOTE | 2019-11-29 09:00 | NUR ---
ms pugh breakfast served, due meds given,tolerated well.
[2019-11-29] MEDS: BACLOFEN (10 MG) 10 MG TABLET PO SCH ×3 (10:09→18:09)
[2019-11-29] MEDS: METFORMIN 850 MG TABLET PO SCH ×2 (10:09→18:08)
[2019-11-29] MEDS: DOCUSATE SODIUM 100 MG CAPSULE PO SCH ×2 (10:10→17:00)
[2019-11-29] MEDS: ASCORBIC ACID 500 MG TABLET PO SCH (10:10)
[2019-11-29] MEDS: DULOXETINE HCL 30 MG CAPSULE.DR PO SCH ×2 (10:10→10:35)
[2019-11-29] MEDS: FAMOTIDINE (20 MG) 20 MG TABLET PO SCH ×2 (10:10→18:09)
[2019-11-29] MEDS: LEVETIRACETAM (250 MG) 250 MG TABLET PO SCH (10:37)
[2019-11-29] MEDS: PROSOURCE / PROSTAT (PYXIS) 30 ML UDC GT SCH ×3 (11:11→17:00)
[2019-11-29 11:43] LABS: CALCIUM, SERUM 8.4 mg/dL (8.5-10.1); CREATININE 0.6 mg/dL (0.6-1.3); POTASSIUM 3.6 mmol/L (3.5-5.1)
--- NOTE | 2019-11-29 12:00 | NUR ---
ms rn accucheck refused at this time, no s/s of hyper/hypoglycemia noted.
--- NOTE | 2019-11-29 13:00 | NUR ---
ms rn was seen by dr. anabelle coleman/ order to discharge to facility today.
[2019-11-29 16:00] VITALS: BP 114/67
--- NOTE | 2019-11-29 17:00 | NUR ---
ms lexy mena refused, patient will be discharge to [facility] soon, report given to Thalia pugh.
--- NOTE | 2019-11-29 17:05 | NUR ---
ms rn transportation came to warehouse picker patient but they don't have bariatric bed, patient on will call cassie.
--- NOTE | 2019-11-29 19:00 | NUR ---
ms rn report given to jayleen for discharge.
--- NOTE | 2019-11-29 20:00 | NUR ---
MSRN LEFT PREMISES VIA AMBULANCE. STABLE
== END 2019-11-29 19:55 | DRG 364 ==
LOC: ER 14:48 → MEDSG1 17:01 → ICU 11-25 15:03 → MEDSG1 11-26 20:28 → MED 11-28 18:11
PROC: 05H533Z Insertion of Infusion Device into Right Subclavian Vein, Percutaneous Approach (ICD-10-PCS; 2019-11-26)
PROC: B546ZZA Ultrasonography of Right Subclavian Vein, Guidance (ICD-10-PCS; 2019-11-26)
PROC: 0KBV0ZZ Excision of Right Foot Muscle, Open Approach (ICD-10-PCS; principal; 2019-11-28)
PROC: 0HBRXZZ Excision of Toe Nail, External Approach (ICD-10-PCS; principal; 2019-11-28)
PROC: 0HDRXZZ Extraction of Toe Nail, External Approach (ICD-10-PCS; principal; 2019-11-28)
PROC: 0QBP0ZZ Excision of Left Metatarsal, Open Approach (ICD-10-PCS; principal; 2019-11-28)
PROC: 0QBM0ZZ Excision of Left Tarsal, Open Approach (ICD-10-PCS; principal; 2019-11-28)
DX: L03.115 Cellulitis of right lower limb (principal); E11.621 Type 2 diabetes mellitus with foot ulcer; D50.9 Iron deficiency anemia, unspecified; L98.499 Non-pressure chronic ulcer of skin of other sites with unspecified severity; L97.529 Non-pressure chronic ulcer of other part of left foot with unspecified severity; L97.519 Non-pressure chronic ulcer of other part of right foot with unspecified severity; G40.909 Epilepsy, unspecified, not intractable, without status epilepticus; I49.3 Ventricular premature depolarization; N31.9 Neuromuscular dysfunction of bladder, unspecified; G82.20 Paraplegia, unspecified; L89.159 Pressure ulcer of sacral region, unspecified stage; B35.1 Tinea unguium; E87.2 Acidosis; E66.01 Morbid (severe) obesity due to excess calories; Z68.41 Body mass index [BMI] 40.0-44.9, adult; I10 Essential (primary) hypertension; Z74.01 Bed confinement status; Z91.19 Patient's noncompliance with other medical treatment and regimen; E11.40 Type 2 diabetes mellitus with diabetic neuropathy, unspecified; S91.202A Unspecified open wound of left great toe with damage to nail, initial encounter; X58.XXXA Exposure to other specified factors, initial encounter; Y93.9 Activity, unspecified; Y92.89 Other specified places as the place of occurrence of the external cause; Z79.84 Long term (current) use of oral hypoglycemic drugs; S90.212A Contusion of left great toe with damage to nail, initial encounter
CPT/HCPCS: 36410; 36415; 71045-TC; 73630-TC; 80048-TC; 80061-TC; 80076-TC; 80202-TC; 81000-TC; 82962-TC; 83605-TC; 83735-TC; 84100-TC; 84443-TC; 84484-TC; 85025-TC; 85730-TC; 87040-TC; 87070-TC; 87081-TC; 87086-TC; 87186-TC; 88305-TC; 88311-TC; 94799-TC; A6209; A6253; A6403; G0378; J0690; J0692; J1650; J1815; J2250; J2405; J2543; J2704; J2765; J3010; J3370; J3490; J7050; J7060; U0003-CS